=== PATIENT | male | born 1960 | race Caucasian/White ===

== ENCOUNTER 2017-07-27 12:10 | Emergency (ER) | payer SELFPAY ==
[~2017-07-27] VITALS: Ht 170.2 cm; Wt 88.5 kg
[2017-07-27 12:31] VITALS: BP 119/73
[2017-07-27 14:05] LABS: BASOPHILS # (AUTO) 0.4 K/uL (0.00-0.22); EOSINOPHILS # (AUTO) 0.1 K/uL (0-0.4); HEMATOCRIT 44.1 % (36-52); HEMOGLOBIN 14.7 g/dL (12.0-18.0); LYMPHOCYTES # (AUTO) 1.8 K/uL (2.0-11.5); MEAN CORPUSCULAR HEMOGLOBIN 31 pg (27-31); MEAN CORPUSCULAR HGB CONC 33 g/dL (33-37); MEAN CORPUSCULAR VOLUME 92 fL (80-94); MONOCYTES # (AUTO) 0.7 K/uL (0.8-1.0); NEUTROPHILS # (AUTO) 5.6 K/uL (1.8-7.7); PLATELET COUNT (AUTO) 202 K/uL (140-450); RED BLOOD CELL COUNT(AUTO) 4.79 MIL/uL (4.20-6.10); RED CELL DISTRIBUTION WIDTH 12.1 % (11.6-13.7); WHITE BLOOD COUNT (AUTO) 8.6 K/uL (4.8-10.8)
[2017-07-27 14:27] LABS: CARBON DIOXIDE 27.2 mmol/L (21-32); CREATININE 1.1 mg/dL (0.7-1.3); POTASSIUM 4.2 mmol/L (3.5-5.1)
[2017-07-27 14:34] LABS: ALBUMIN 3.7 g/dL (3.4-5.0); TOTAL BILIRUBIN 0.8 mg/dL (0.0-1.0)
[2017-07-27 15:18] LABS: APPEARANCE,URINE CLEAR (CLEAR); BILIRUBIN,URINE NEGATIVE (NEGATIVE); BLOOD, URINE NEGATIVE (NEGATIVE); LEUKOCYTE ESTERASE ,URINE NEGATIVE (NEGATIVE); NITRITE, URINE NEGATIVE (NEGATIVE); PH,URINE 5.5 (5.0-9.0); UGLUCOSE NEGATIVE (NEGATIVE)
[2017-07-27 15:45] LABS: COLOR,URINE STRAW (YELLOW)
--- NOTE | 2017-07-27 16:00 | NUR ---
DR BARKER SAW PT IN LOBBY AND I WAS NOT ABLE TO DO FULL ASSESSMENT.
[2017-07-27 16:06] VITALS: BP 126/71
--- NOTE | 2017-07-27 16:06 | NUR ---
Patient discharged with v/s stable. Written and verbal after care instructions given and explained. Patient verbalized understanding. Ambulatory with steady gait. All questions addressed prior to discharge. Advised to follow up with PMD. PT DISACHRGED BY DR CHANG.
== END 2017-07-27 16:06 | disposition home or self-care (01) ==
LOC: MED 12:10
DX: K29.70 Gastritis, unspecified, without bleeding (principal)
CPT/HCPCS: 36415; 80053; 81003; 83690; 85025; 99284

== ENCOUNTER 2021-05-19 12:20 | Emergency (ER) | payer OTHER ==
[~2021-05-19] VITALS: Ht 170.2 cm; Wt 88.5 kg
[2021-05-19 12:23] VITALS: BP 157/92
[2021-05-19] MEDS ORDERED: DICYCLOMINE HCL LIQUID 20 MG, ALUMINUM HYD/MAG/SIMETHICONE 30 ML, LIDOCAINE VISCOUS 2% ... PO ONE ×3 (12:50)
--- NOTE | 2021-05-19 12:51 | NUR ---
61 Y/O MALE PATIENT PRESENTS TO ED WITH EPIGASTRIC PAIN WHICH RADIATES TO DIFFUSE LOWER ABDOMEN. PT STATES FOR 2 DAYS HE HAS HAD PAIN AND TROUBLE HAVING A BOWEL MOVEMENT. DENIES N/V/D; SKIN IS PINK/WARM/DRY; AAOX4 WITH EVEN AND STEADY GAIT; LUNGS CLEAR BL; HR EVEN AND REGULAR; PT DENIES ANY FEVER, CP, SOB, OR COUGH AT THIS TIME; PATIENT STATES PAIN OF 10/10 AT THIS TIME; VSS; PATIENT POSITIONED FOR COMFORT; HOB ELEVATED; BEDRAILS UP X2; BED DOWN. ER MD MADE AWARE OF PT STATUS. TURKISH SPEAKER. HX: "PROSTATE PROBLEMS" NKDA MEDS: OMEPRAZOLE
--- NOTE | 2021-05-19 12:52 | NUR ---
LAB AT PATIENT BEDSIDE COLLECTING BLOODWORK
[2021-05-19] MEDS ORDERED: DICYCLOMINE HCL LIQUID 10 MG/5 ML UDC ONE (12:55)
[2021-05-19] MEDS ORDERED: ALUMINUM HYD/MAG/SIMETHICONE 30 ML UDC ONE (12:55)
--- NOTE | 2021-05-19 12:57 | NUR ---
XRAY AT PT BEDSIDE
[2021-05-19 13:20] LABS: HEMATOCRIT 42.1 % (36-52); HEMOGLOBIN 14.4 g/dL (12.0-18.0); MEAN CORPUSCULAR HEMOGLOBIN 32 pg (27-31); MEAN CORPUSCULAR HGB CONC 34 g/dL (33-37); RED BLOOD CELL COUNT(AUTO) 4.53 MIL/uL (4.20-6.10); RED CELL DISTRIBUTION WIDTH 13.4 % (11.6-13.7)
[2021-05-19 13:33] LABS: PLATELET COUNT (AUTO) 38 K/uL (140-450); WHITE BLOOD COUNT (AUTO) 2.3 K/uL (4.8-10.8)
[2021-05-19 13:36] LABS: LYMPHOCYTES % (MANUAL) 11 % (20-46); MONOCYTES % (MANUAL) 11 % (5-12)
[2021-05-19 13:50] LABS: ANION GAP 10.8 (8-16); POTASSIUM 3.8 mmol/L (3.5-5.1)
[2021-05-19 13:57] LABS: ALBUMIN 3.3 g/dL (3.4-5.0); BILIRUBIN,DIRECT 0.1 mg/dL (0.0-0.3); TOTAL BILIRUBIN 0.5 mg/dL (0.0-1.0)
[2021-05-19] MEDS ORDERED: CYAN1TAB PO (15:00)
[2021-05-19 15:20] VITALS: BP 130/86
--- NOTE | 2021-05-19 15:20 | NUR ---
Patient discharged with v/s stable. Written and verbal after care instructions given and explained. Patient verbalized understanding. Ambulatory with steady gait. All questions addressed prior to discharge. Advised to follow up with PMD. Patient discharged with v/s stable. Written and verbal after care instructions given and explained. Patient alert, oriented and verbalized understanding of instructions. Ambulatory with steady gait. All questions addressed prior to discharge. ID band removed. Patient advised to follow up with PMD. Rx of B12/LEVOMEFOLATE CALCIUM/B6 given. Patient educated on indication of medication including possible reaction and side effects. Opportunity to ask questions provided and answered. PT HAS CALM DEMEANOR, UNLABORED BREATHING WITH BILATERAL CHEST RISE/FALL, STEADY GAIT W/O ASSISTANCE.
[2021-05-20 06:07] LABS: FOLIC ACID 14.3 ng/mL (>3.0)
== END 2021-05-19 15:20 | disposition home or self-care (01) ==
LOC: MED 12:20
DX: R10.13 Epigastric pain (principal); D72.819 Decreased white blood cell count, unspecified; D69.6 Thrombocytopenia, unspecified
CPT/HCPCS: 36415; 74018; 80048; 80076; 82607; 82746; 85025; 99284; Q0092